=== PATIENT | male | born 2000 | race African-American/Black ===

== ENCOUNTER 2020-08-10 15:42 | Emergency (ER) | payer OTHER ==
--- NOTE | 2020-08-10 16:06 | ED Physician Documentation ---
History of Present Illness - Stated complaint Stated Complaint: BODY ACHES - Chief complaint Chief Complaint: Heent - History obtained from History obtained from: Patient - Additonal information Additional information: Developed body aches and chills yesterday. No shortness of breath or cough. No runny nose. His roommate is sick with a similar illness with pending Covid results. Review of Systems Constitutional: reports: Chills, Fatigue. denies: Fever Nose: denies: Rhinorrhea / runny nose Throat: denies: Sore throat Respiratory: denies: Dyspnea, Cough GI: denies: Nausea PD PAST MEDICAL HISTORY - Present Medications Home Medications: Ambulatory Orders Medication Instructions Recorded Confirmed Ibuprofen [Motrin] 800 mg PO Q8H PRN #30 tablet 08/10/20 - Allergies Allergies/Adverse Reactions: Allergies Allergy/AdvReac Type Severity Reaction Status Date / Time No Known Drug Allergies Allergy Verified 08/10/20 15:56 PD ED PE NORMAL - Vitals Vital signs reviewed: Yes - General General: Alert and oriented X 3, No acute distress - HEENT HEENT: Pharynx benign - Neck Neck: Supple, no meningeal sign, No bony TTP - Neuro Neuro: Alert and oriented X 3, Normal speech - Psych Psych: Normal mood, Normal affect Results - Vitals Vitals: Vital Signs - 24 hr 08/10/20 15:50 Temperature 37.4 C Heart Rate 94 Respiratory 17 Rate Blood Pressure 132/71 H O2 Saturation 99 Oxygen O2 Source Room air PD MEDICAL DECISION MAKING - ED course ED course: 20-year-old gentleman with flulike illness presents requesting coronavirus testing and this is sent, discussed that he needs to home quarantine until results are done and negative. Departure - Departure Disposition: 01 Home, Self Care Clinical Impression: Viral syndrome Condition: Good Record reviewed to determine appropriate education?: Yes Instructions: ED Viral Syndrome Prescriptions: Ibuprofen [Motrin] 800 mg PO Q8H PRN #30 tablet PRN Reason: PAIN &/OR FEVER Comments: You have a Covid test pending. You need to self quarantine until the result is done and negative. Do not leave your house. Do not get near anybody. The results should be done in 48 to 72 hours. We will call with a positive result, the fastest way to get a negative result for confirmation though is to go to the hospital website at [email or web address], click on the my [employer] tab and sign up for the patient portal. Forms: Activity restrictions
[2020-08-10 16:59] VITALS: BP 136/74
== END 2020-08-10 16:59 | disposition home or self-care (01) ==
LOC: ED 15:42
DX: U07.1 COVID-19 (principal)
CPT/HCPCS: 99283

== ENCOUNTER 2022-03-05 21:05 | Emergency (ER) | payer OTHER ==
[2022-03-05 21:11] VITALS: BP 142/81
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
--- NOTE | 2022-03-05 23:04 | XRAY Report ---
PROCEDURE: Foot 3 View LT INDICATIONS: Trauma TECHNIQUE: 3 views of the foot were acquired. COMPARISON: None. FINDINGS: Bones: There is suggestion of malalignment of the second tarsometatarsal joint on the oblique projec tion. Elsewhere, no fracture or dislocation. No suspicious bony lesions. Soft tissues: No tibiotalar joint effusion. Achilles tendon appears normal. IMPRESSION: 1. Suggestion of malalignment of the second tarsometatarsal joint on the oblique projection which may reflect artifact or represent a possible Lisfranc injury. Recommend correlation with clinical exam. Reviewed by: Dave Simon MD on 03/05/2022 11:02 PM PDT Approved by: Dave Simon MD on 03/05/2022 11:02 PM PDT Station ID: [id number]
== END 2022-03-05 23:10 | disposition home or self-care (01) ==
LOC: ED 21:05
DX: S97.82XA Crushing injury of left foot, initial encounter (principal); X58.XXXA Exposure to other specified factors, initial encounter; Y92.410 Unspecified street and highway as the place of occurrence of the external cause
CPT/HCPCS: 99282; 99283

== ENCOUNTER 2022-10-22 08:00 | Outpatient (CLI) | payer OTHER ==
[2022-10-22 12:10] LABS: BASOPHILS # (AUTO) 0.1 10^3/uL (0.0-0.1); BASOPHILS % (AUTO) 1.1 %; EOSINOPHILS # (AUTO) 0.1 10^3/uL (0.0-0.7); EOSINOPHILS % (AUTO) 1.8 %; HCT - HEMATOCRIT 43.2 % (42.0-52.0); HGB - HEMOGLOBIN 14.4 g/dL (14.0-18.0); LYMPHOCYTES # (AUTO) 1.6 10^3/uL (1.5-3.5); LYMPHOCYTES % (AUTO) 34.7 %; MEAN CORPUSCULAR HEMOGLOBIN 32.6 pg (27.0-31.0); MEAN CORPUSCULAR HGB CONC 33.3 g/dL (32.0-36.0); MEAN CORPUSCULAR VOLUME 97.7 fL (80.0-94.0); MEAN PLATELET VOLUME 9.4 fL (7.4-11.4); MONOCYTES # (AUTO) 0.4 10^3/uL (0.0-1.0); MONOCYTES % (AUTO) 8.9 %; NEUTROPHILS # (AUTO) 2.3 10^3/uL (1.5-6.6); NEUTROPHILS % (AUTO) 51.5 %; PLT - PLATELET COUNT 339 10^3/uL (130-450); RED BLOOD COUNT 4.42 10^6/uL (4.70-6.10); WHITE BLOOD COUNT 4.5 x10^3/uL (4.8-10.8)
[2022-10-22 12:34] LABS: THYROID STIMULATING HORMONE 1.04 uIU/mL (0.34-5.60)
[2022-10-22 12:35] LABS: FREE T3 3.06 pg/mL (2.5-3.9)
[2022-10-22 12:36] LABS: FREE T4 (FREE THYROXINE) 0.89 ng/dL (0.58-1.64)
[2022-10-22 12:37] LABS: ALBUMIN 4.2 g/dL (3.2-5.5); ALBUMIN/GLOBULIN RATIO 1.2 (1.0-2.2); BILIRUBIN,TOTAL 0.4 mg/dL (0.2-1.0); CALCIUM 9.5 mg/dL (8.5-10.3); CREATININE 0.9 mg/dL (0.6-1.2); POTASSIUM 4.1 mmol/L (3.5-5.0); TOTAL PROTEIN 7.6 g/dL (6.7-8.2)
== END 2022-10-22 23:59 | disposition home or self-care (01) ==
LOC: LAB.N 08:00
PROVIDERS: ATTEND Nurse Practitioner
DX: E04.9 Nontoxic goiter, unspecified (principal)
CPT/HCPCS: 36415; 80053; 84439; 84443; 84481; 85025

== ENCOUNTER 2022-10-22 10:21 | Outpatient (CLI) | payer OTHER ==
--- NOTE | 2022-10-22 16:46 | XRAY Report ---
PROCEDURE: Neck Soft Tissue INDICATIONS: ENLARGED THYROID TECHNIQUE: 2 views of the neck were acquired. COMPARISON: None FINDINGS: Airway: The airway appears patent. Soft tissues: Prevertebral soft tissues are normal in thickness. The epiglottis and aryepiglottic f olds appear normal. No soft tissue gas. Bones: No suspicious bony lesions. Visualized cervical spine is normally aligned. IMPRESSION: There is poor evaluation of potential for enlarged thyroid on current exam. If this remains of concer n, ultrasound is recommended. Reviewed by: Jenifer Ng MD on 10/22/2022 4:44 PM PST Approved by: Jenifer Ng MD on 10/22/2022 4:44 PM PST Station ID: [id number]
== END 2022-10-22 10:22 | disposition home or self-care (01) ==
LOC: DI 10:21
PROVIDERS: ATTEND Nurse Practitioner
DX: E04.9 Nontoxic goiter, unspecified (principal)
CPT/HCPCS: 36415; 80053; 84439; 84443; 84481; 85025